=== PATIENT | female | born 1980 | race Caucasian/White ===

== ENCOUNTER 2018-06-05 20:03 | Emergency (ER) | payer OTHER ==
[2018-06-05 20:13] VITALS: BP 116/71; PULSE 95; RESP 19; TEMP 98.6
--- NOTE | 2018-06-05 20:22 | ED ---
Fall HPI - General Chief Complaint: Fall Stated Complaint: Fall Time Seen by Provider: 06/05/18 20:09 Source: patient, EMS Mode of arrival: EMS Limitations: no limitations - History of Present Illness Initial Comments: This is a 37-year-old female the ER for evaluation presents today for evaluation regarding fall. Patient a fall from extended height, greater than 10 feet. No drugs or alcohol involved. Patient is just complaining of hip and back pain. Did not land on her head, she did cut herself with her arms and then onto the right hip. She also has back pain. No loss of bowel or bladder no neurological complaint, patient is amateur MD Complaint: fall -: minutes(s) Fall From: from height (distance) When Fall Occurred: 1 hour UNSCRAMBLER Fall Witnessed: yes, by family Place Fall Occurred: home Loss of Consciousness: none Prolonged Down Time?: no Symptoms Prior to Fall: none Location: pelvis, buttocks Location - Extremities: Right: Thigh Severity: moderate Severity scale (1-10): 6 Quality: aching Context: tripped/slipped Associated Symptoms: denies - Related Data Home Medications Medication Instructions Recorded Confirmed Insulin Glulisine [Apidra] See Protocol INTRATHECA CONTINUOUS 10/27/14 06/05/18 ALPRAZolam 0.5 mg PO DAILY PRN 09/22/15 06/05/18 Cephalexin [Keflex] 500 mg PO TID 06/05/18 06/05/18 Previous Rx's Medication Instructions Recorded Naproxen [Naprosyn] 500 mg PO Q12HR PRN #30 tab 06/05/18 Allergies Allergy/AdvReac Type Severity Reaction Status Date / Time azithromycin [From Zithromax] Allergy Unknown Verified 06/05/18 21:24 morphine Allergy Unknown Verified 06/05/18 21:24 Sulfa (Sulfonamide Allergy Unknown Verified 06/05/18 21:24 Antibiotics) Review of Systems ROS Statement: Those systems with pertinent positive or pertinent negative responses have been documented in the HPI. ROS Other: All systems not noted in ROS Statement are negative. Past Medical History Past Medical History: Diabetes Mellitus Additional Past Medical History / Comment(s): neuropathy, retinopathy History of Any Multi-Drug Resistant Organisms: None Reported Past Surgical History: Section Past Psychological History: Anxiety, Depression Smoking Status: Current every day smoker Past Alcohol Use History: None Reported Past Drug Use History: None Reported General Exam Limitations: physical limitation General appearance: alert, in no apparent distress Head exam: Present: atraumatic, normocephalic, normal inspection Eye exam: Present: normal appearance, PERRL, EOMI. Absent: scleral icterus, conjunctival injection, periorbital swelling ENT exam: Present: normal exam, mucous membranes moist Neck exam: Present: normal inspection. Absent: tenderness, meningismus, lymphadenopathy Respiratory exam: Present: normal lung sounds bilaterally. Absent: respiratory distress, wheezes, rales, rhonchi, stridor Cardiovascular Exam: Present: regular rate, normal rhythm, normal heart sounds. Absent: systolic murmur, diastolic murmur, rubs, gallop, clicks GI/Abdominal exam: Present: soft, normal bowel sounds. Absent: distended, tenderness, guarding, rebound, rigid Extremities exam: Present: normal inspection, full ROM, normal capillary refill. Absent: tenderness, pedal edema, joint swelling, calf tenderness Back exam: Present: normal inspection Neurological exam: Present: alert, oriented X3, CN II-XII intact Psychiatric exam: Present: normal affect, normal mood Skin exam: Present: warm, dry, intact, normal color. Absent: rash Course Vital Signs 06/05/18 20:08 Temperature 98.6 F Pulse Rate 95 Respiratory 19 Rate Blood Pressure 116/71 O2 Sat by Pulse 97 Oximetry - Reevaluation(s) Reevaluation #1: Medical record is reviewed Patient is able to ambulate Medical Decision Making - Medical Decision Making 37 female the ER for evaluation status post fall. Patient is currently ambulatory. Pain is controlled, x-rays are negative. No bowel pain no again loss of consciousness. No drugs or alcohol. Patient can be discharged home - Radiology Data Radiology results: report reviewed (Chest x-ray pelvis x-ray lumbosacral spine as well as right hip are negative for traumatic injury), image reviewed Disposition Clinical Impression: Fall, Back contusion, Contusion of right hip Disposition: HOME SELF-CARE Condition: Good Instructions (If sedation given, give patient instructions): Contusion in Adults (ED), Back Pain (ED), Hip Pain (ED) Prescriptions: Naproxen [Naprosyn] 500 mg PO Q12HR PRN #30 tab PRN Reason: Pain Is patient prescribed a controlled substance at d/c from ED?: No Referrals: Adrianna Alfaro MD [Primary Care Provider] - 1-2 days
[2018-06-05] MEDS ORDERED: HYDROcodone/APAP 5-325MG 1 EACH TAB PO STA (20:40)
--- NOTE | 2018-06-05 21:59 | XR ---
EXAMINATION TYPE: XR Hip LT and AP Pelvis DATE OF EXAM: 06/05/2018 COMPARISON: NONE HISTORY: Pelvic and left hip pain after fall injury. TECHNIQUE: A single AP view of the pelvis is obtained. Two views of the left hip are obtained. FINDINGS: There is no acute fracture/dislocation evident in the pelvis. The hip and sacroiliac join ts appear symmetric and unremarkable. Tubal ligation clips overlie the pelvis. Two views of left hip show no acute fracture or dislocation. No focal lytic or sclerotic lesion seen in the proximal left femur. The overlying soft tissue is unremarkable. IMPRESSION: There is no acute fracture or dislocation in the pelvis or left hip.
--- NOTE | 2018-06-05 22:00 | XR ---
EXAMINATION TYPE: XR lumbosacral spine min 4V DATE OF EXAM: 06/05/2018 CLINICAL HISTORY: Back pain after fall injury. TECHNIQUE: Frontal, lateral, and oblique images of the lumbar spine are obtained. COMPARISON: None FINDINGS: There are 5 lumbar type vertebral bodies identified. The lumbar spine shows satisfactory alignment without evidence of acute fracture or dislocation. Vertebral body heights and disk space he ights are within normal limits. One oblique image is suboptimal in technique. The other is within nor mal limits. The overlying soft tissue appears unremarkable. IMPRESSION: No acute fracture or dislocation is seen in the lumbar spine.
--- NOTE | 2018-06-05 22:01 | XR ---
EXAMINATION TYPE: XR chest 1V DATE OF EXAM: 06/05/2018 COMPARISON: Chest x-ray June 28, 2015 HISTORY: Chest pain after fall injury. TECHNIQUE: Single frontal view of the chest is obtained. FINDINGS: There is no focal air space opacity, pleural effusion, or pneumothorax seen. The cardiac silhouette size is within normal limits. The osseous structures are intact. IMPRESSION: No acute cardiopulmonary process.
[2018-06-05] MEDS ORDERED: Acetaminophen-Codeine 300-30mg TAB PO STA (22:04)
[2018-06-05] MEDS ORDERED: IBUPROFEN 400 MG TAB PO STA (22:04)
[2018-06-05] MEDS ORDERED: ACET/COD 300 MG/30 MG STARTER PACK 6 TAB BTL PO STA (22:04)
== END 2018-06-05 23:31 | disposition home or self-care (01) ==
LOC: EC 20:03
DX: S70.02XA Contusion of left hip, initial encounter (principal); S20.229A Contusion of unspecified back wall of thorax, initial encounter; E11.40 Type 2 diabetes mellitus with diabetic neuropathy, unspecified; E11.319 Type 2 diabetes mellitus with unspecified diabetic retinopathy without macular edema; F41.9 Anxiety disorder, unspecified; F32.9 Major depressive disorder, single episode, unspecified; F17.200 Nicotine dependence, unspecified, uncomplicated; Z79.4 Long term (current) use of insulin; Z88.1 Allergy status to other antibiotic agents; Z88.2 Allergy status to sulfonamides; Z88.5 Allergy status to narcotic agent; W17.89XA Other fall from one level to another, initial encounter; Y92.009 Unspecified place in unspecified non-institutional (private) residence as the place of occurrence of the external cause
CPT/HCPCS: 71045; 72110; 73502; 99283

== ENCOUNTER → 2018-12-01 | Outpatient (CLI) | payer OTHER ==
[2018-12-01 16:14] LABS: African American GFR (CKD) 95.3 (60.0-200.0); Calcium 10.1 mg/dL (8.7-10.3); Potassium 5.9 mmol/L (3.5-5.5)
[2018-12-01 17:46] LABS: Hemoglobin A1C 7.8 % (4.0-6.0)
== END | disposition home or self-care (01) ==
LOC: LABWHC1 09:09
PROVIDERS: ATTEND Internal Medicine Endocrinology, Diabetes & Metabolism
DX: E11.9 Type 2 diabetes mellitus without complications (principal)
CPT/HCPCS: 36415; 80048; 83036

== ENCOUNTER → 2021-01-26 | Outpatient (CLI) | payer OTHER ==
[2021-01-26 22:17] LABS: African American GFR (CKD) 81.8 (60.0-200.0); Anion Gap 16.3 mmol/L (4.00-12.00); BUN/Creat Ratio 10.4 Ratio (12.00-20.00); Blood Urea Nitrogen 10.5 mg/dL (9.0-27.0); Calcium 9.2 mg/dL (8.7-10.3); Carbon Dioxide 21.9 mmol/L (21.6-31.8); Non-African American GFR(CKD) 70.6 (60.0-200.0); Potassium 3.9 mmol/L (3.5-5.5)
== END | disposition home or self-care (01) ==
LOC: LABWHC1 12:19
PROVIDERS: ATTEND Internal Medicine Endocrinology, Diabetes & Metabolism
DX: E11.9 Type 2 diabetes mellitus without complications (principal)
CPT/HCPCS: 36415; 80048; 83036

== ENCOUNTER → 2021-01-28 | Outpatient (CLI) | payer OTHER ==
--- NOTE | 2021-01-28 15:14 | US ---
EXAMINATION TYPE: US kidneys/renal and bladder DATE OF EXAM: 01/28/2021 COMPARISON: NONE CLINICAL HISTORY: 40-year-old female N12 Tubulo- interstitial nephritis. Flank pain. TECHNIQUE: Multiple sonographic images of the kidneys and bladder are obtained. FINDINGS: EXAM MEASUREMENTS: Right Kidney: 12.0 x 5.6 x 5.3 cm Left Kidney: 10.9 x 4.5 x 5.8 cm No hydronephrosis on either side. Bladder: distended, anechoic Bilateral Jets seen IMPRESSION: No hydronephrosis. No discrete sonographic abnormality of the kidneys.
== END | disposition home or self-care (01) ==
LOC: RADUSWWP 12:02
PROVIDERS: ATTEND Internal Medicine Endocrinology, Diabetes & Metabolism
DX: R10.9 Unspecified abdominal pain (principal)
CPT/HCPCS: 76770

== ENCOUNTER → 2022-02-19 | Outpatient (CLI) | payer OTHER ==
[2022-02-19 15:05] LABS: African American GFR (CKD) 93.4 (60.0-200.0); Anion Gap 10.9 mmol/L (10.00-18.00); BUN/Creat Ratio 10.11 Ratio (12.00-20.00); Blood Urea Nitrogen 9.1 mg/dL (9.0-27.0); Carbon Dioxide 27.1 mmol/L (20.0-27.5); Non-African American GFR(CKD) 80.5 (60.0-200.0); Potassium 5.4 mmol/L (3.5-5.5)
== END | disposition home or self-care (01) ==
LOC: LABWHC1 08:49
PROVIDERS: ATTEND Internal Medicine Endocrinology, Diabetes & Metabolism
DX: E11.9 Type 2 diabetes mellitus without complications (principal)
CPT/HCPCS: 36415; 80048; 82043; 82570; 83036

== ENCOUNTER 2022-11-15 20:17 | Inpatient (IN) | payer OTHER ==
[2022-11-15] MEDS ORDERED: SODIUM CHLORIDE 0.9% 1,000 ML IV STA ×2 (20:55→21:28)
--- NOTE | 2022-11-15 20:56 | ED ---
Recheck HPI - General Chief Complaint: Recheck/Abnormal Lab/Rx Stated Complaint: hyperglycemia Time Seen by Provider: 11/15/22 20:39 Source: patient, RN notes reviewed, old records reviewed Mode of arrival: ambulatory Limitations: altered mental status - History of Present Illness Initial Comments: This is a 42 history of diabetes. Patient coming in with severe nausea vomiting weakness not feeling well. Patient is having significant to severe distress. Poor strain secondary to clinical condition with severe shortness of breath nausea vomiting and weakness. Patient lost her insulin pump yesterday and without the sun all day does admit to some alcohol consumption yesterday and severely altered today and severely ill MD Complaint: abnormal lab (Elevated blood sugar) -: hour(s) Symptoms Since Prior Visit: worsening pain Associated Symptoms: none Treatments Prior to Arrival: other (0) - Related Data Home Medications Medication Instructions Recorded Confirmed Atorvastatin [Lipitor] 10 mg PO DAILY 11/15/22 11/15/22 DULoxetine HCL [Cymbalta] 60 mg PO DAILY 11/15/22 11/15/22 Glucagon [Baqsimi] 1 spray NASAL ONCE PRN 11/15/22 11/15/22 INSULIN LISPRO (For Pump) [humaLOG 0.01 units SQ-PUMP CONTINUOUS 11/15/22 11/15/22 (For Pump)] Previous Rx's Medication Instructions Recorded Calcium Carbonate [Tums] 500 mg PO QID PRN tab 11/18/22 Ondansetron Odt [Zofran Odt] 4 mg PO Q8HR PRN #30 tab 11/18/22 Allergies Allergy/AdvReac Type Severity Reaction Status Date / Time azithromycin [From Zithromax] Allergy Unknown Verified 06/05/18 21:24 morphine Allergy Unknown Verified 06/05/18 21:24 Sulfa (Sulfonamide Allergy Unknown Verified 06/05/18 21:24 Antibiotics) Review of Systems ROS Statement: Those systems with pertinent positive or pertinent negative responses have been documented in the HPI. ROS Other: All systems not noted in ROS Statement are negative. Past Medical History Past Medical History: Diabetes Mellitus Additional Past Medical History / Comment(s): neuropathy, retinopathy History of Any Multi-Drug Resistant Organisms: None Reported Past Surgical History: Section Past Psychological History: Anxiety, Depression Past Alcohol Use History: None Reported Past Drug Use History: None Reported General Exam Limitations: altered mental status, physical limitation General appearance: alert, in no apparent distress, anxious, lethargic, in distr ess Head exam: Present: atraumatic, normocephalic, normal inspection Eye exam: Present: normal appearance, PERRL, EOMI. Absent: scleral icterus, conjunctival injection, periorbital swelling ENT exam: Present: normal exam, mucous membranes dry Neck exam: Present: normal inspection. Absent: tenderness, meningismus, lymphadenopathy Respiratory exam: Present: normal lung sounds bilaterally. Absent: respiratory distress, wheezes, rales, rhonchi, stridor Cardiovascular Exam: Present: normal rhythm, tachycardia, normal heart sounds. Absent: systolic murmur, diastolic murmur, rubs, gallop, clicks GI/Abdominal exam: Present: soft, normal bowel sounds. Absent: distended, tenderness, guarding, rebound, rigid Extremities exam: Present: normal inspection, full ROM, normal capillary refill. Absent: tenderness, pedal edema, joint swelling, calf tenderness Back exam: Present: normal inspection Neurological exam: Present: alert, oriented X3, CN II-XII intact Psychiatric exam: Present: normal affect, normal mood Skin exam: Present: warm, dry, intact, normal color. Absent: rash Course Vital Signs 11/15/22 11/15/22 20:22 22:55 Temperature 97.9 F Pulse Rate 118 H 121 H Respiratory 18 42 H Rate Blood Pressure 113/55 O2 Sat by Pulse 100 Oximetry - Reevaluation(s) Reevaluation #1: 11/15/22 22:42 Medical records reviewed Reevaluation #2: 11/15/22 22:42 Patient found be in severe DKA, improving with hydration and Ativan shaking has significant Reevaluation #3: 11/15/22 22:43 Patient informed results and questions answered Reevaluation #4: 11/15/22 22:43 Was pt. sent in by a medical professional or institution (, PA, DINING SERVICES DIRECTOR, urgent care, hospital, or care home...) When possible be specific @ -no Did you speak to anyone other than the patient for history (EMS, parent, family, police, friend...)? What history was obtained from this source @ -no Did you review nursing and triage notes (agree or disagree)? Why? @ -agree Are old charts reviewed (outside hosp., previous admission, EMS record, old EKG, old radiological studies, urgent care reports/EKG's, care home records)? Report findings @ -yes Differential Diagnosis (chest pain, altered mental status, abdominal pain women, abdominal pain men, vaginal bleeding, weakness, fever, dyspnea, syncope, headache, dizziness, GI bleed, back pain, seizure, CVA, palpatations, mental health, musculoskeletal)? @ -prior EKG interpreted by me (3pts min.). @ -yes X-rays interpreted by me (1pt min.). @ -no CT interpreted by me (1pt min.). @ -no U/S interpreted by me (1pt. min.). @ -no What testing was considered but not performed or refused? (CT, X-rays, U/S, labs)? Why? @ -none What meds were considered but not given or refused? Why? @ -none Did you discuss the management of the patient with other professionals (professionals i.e. , PA, DINING SERVICES DIRECTOR, lab, RT, psych nurse, foster care social worker, shingle weaver, teacher, transport corps officer, therapeutic case manager)? Give summary @ -no Was smoking cessation discussed for >3mins.? @ -no Was critical care preformed (if so, how long)? @ -yes65 Were there social determinants of health that impacted care today? How? (Homelessness, low income, unemployed, alcoholism, drug addiction, transportation, low edu. Level, literacy, decrease access to med. care, alf, rehab)? @ -none Was there de-escalation of care discussed even if they declined (Discuss DNR or withdrawal of care, Hospice)? DNR status @ -no What co-morbidities impacted this encounter? (DM, HTN, Smoking, COPD, CAD, Cancer, CVA, ARF, Chemo, Hep., AIDS, mental health diagnosis, sleep apnea, morbid obesity)? @ -none Was patient admitted / discharged? Hospital course, mention meds given and route, prescriptions, significant lab abnormalities, going to OR and other pertinent info. @ - 42 female to the emergency department presenting in severe distress, nausea vomiting weakness shaking tremors. Severe shortness of breath difficulty breathing. Patient is found to be in significant DKA pH 7.0, patient will be admitted for DKA protocol to the ICU Admitted Undiagnosed new problem with uncertain prognosis? @ -no Drug Therapy requiring intensive monitoring for toxicity (Heparin, Nitro, Insulin, Cardizem)? @ -no Were any procedures done? @ -no Diagnosis/symptom? @ -Diabetic ketoacidosis Acute, or Chronic, or Acute on Chronic? @ -Acute Uncomplicated (without systemic symptoms) or Complicated (systemic symptoms)? @ -Complicated Side effects of treatment? @ -no Exacerbation, Progression, or Severe Exacerbation? @ -exacerbation Poses a threat to life or bodily function? How? (Chest pain, USA, NV, pneumonia, PE, COPD, DKA, ARF, appy, cholecystitis, CVA, Diverticulitis, Homicidal, Suicidal, threat to staff... and all critical care pts) @ -yes severe illness with DKA Reevaluation #5: 11/15/22 22:43 Differential Altered Mental Status: Hypoglycemia, DKA, hypercapnia, ETOH, overdose, CO poisoning, trauma, myxedema coma, HTN encephalopathy, infection, encephalitis, psychosis, intercranial hemorrhage, hepatic encephalopathy, meningitis, CVA, this is not meant to be an all-inclusive list - Consultations Consultation #1: Spoke with sound physicians who agree to admit this patient Consultation #2: Spoke with ICU who accepts admission to the ICU this patient Medical Decision Making - Medical Decision Making 42 female to the emergency department presenting in severe distress, nausea vomiting weakness shaking tremors. Severe shortness of breath difficulty breathing. Patient is found to be in significant DKA pH 7.0, patient will be admitted for DKA protocol to the ICU - Lab Data Result diagrams: 11/17/22 05:25 11/17/22 05:25 Lab Results 11/15/22 11/15/22 11/15/22 Range/Units 20:55 20:55 20:55 WBC 27.2 H (3.8-10.6) k/uL RBC 4.44 (3.80-5.40) m/uL Hgb 14.6 (11.4-16.0) gm/dL Hct 46.5 H (34.0-46.0) % MCV 104.7 H (80.0-100.0) fL MCH 32.8 (25.0-35.0) pg MCHC 31.4 (31.0-37.0) g/dL RDW 12.2 (11.5-15.5) % Plt Count 308 (150-450) k/uL MPV 9.5 Neutrophils % 90 % Lymphocytes % 5 % Monocytes % 4 % Eosinophils % 0 % Basophils % 0 % Neutrophils # 24.5 H (1.3-7.7) k/uL Lymphocytes # 1.4 (1.0-4.8) k/uL Monocytes # 1.1 H (0-1.0) k/uL Eosinophils # 0.1 (0-0.7) k/uL Basophils # 0.0 (0-0.2) k/uL Hypochromasia Marked Macrocytosis Slight VBG pH (7.31-7.41) VBG pCO2 (37-51) mmHg VBG HCO3 (24-28) mmol/L Sodium 140 (137-145) mmol/L Potassium 7.4 H* (3.5-5.1) mmol/L Chloride 100 (98-107) mmol/L Carbon Dioxide <5 L* (22-30) mmol/L Anion Gap mmol/L BUN 32 H (7-17) mg/dL Creatinine 1.49 H (0.52-1.04) mg/dL Est GFR (CKD-EPI)AfAm 51 (>60 ml/min/1.73 sqM) Est GFR (CKD-EPI)NonAf 44 (>60 ml/min/1.73 sqM) Glucose 676 H* (74-99) mg/dL POC Glucose (mg/dL) (70-110) mg/dL POC Glu Project Management Professor ID Calcium 10.4 H (8.4-10.2) mg/dL Phosphorus 9.9 H* (2.5-4.5) mg/dL Magnesium 2.7 H (1.6-2.3) mg/dL Total Bilirubin 0.8 (0.2-1.3) mg/dL AST 44 H (14-36) U/L ALT 44 H (4-34) U/L Alkaline Phosphatase 97 (38-126) U/L Troponin I (0.000-0.034) ng/mL Total Protein 8.5 H (6.3-8.2) g/dL Albumin 5.2 H (3.5-5.0) g/dL Urine Color Light Yellow Urine Appearance Clear (Clear) Urine pH 5.0 (5.0-8.0) Ur Specific [place] 1.018 (1.001-1.035) Urine Protein 1+ H (Negative) Urine Glucose (UA) 4+ H (Negative) Urine Ketones 4+ H (Negative) Urine Blood Small H (Negative) Urine Nitrite Negative (Negative) Urine Bilirubin Negative (Negative) Urine Urobilinogen <2.0 (<2.0) mg/dL Ur Leukocyte Esterase Negative (Negative) Ur Squamous Epith Cells 1 (0-4) /hpf Hyaline Casts 1 (0-2) /lpf Urine Mucus Rare H (None) /hpf Acetone, Qual Positive (Negative) 11/15/22 11/15/22 11/15/22 Range/Units 20:55 21:25 21:33 WBC (3.8-10.6) k/uL RBC (3.80-5.40) m/uL Hgb (11.4-16.0) gm/dL Hct (34.0-46.0) % MCV (80.0-100.0) fL MCH (25.0-35.0) pg MCHC (31.0-37.0) g/dL RDW (11.5-15.5) % Plt Count (150-450) k/uL MPV Neutrophils % % Lymphocytes % % Monocytes % % Eosinophils % % Basophils % % Neutrophils # (1.3-7.7) k/uL Lymphocytes # (1.0-4.8) k/uL Monocytes # (0-1.0) k/uL Eosinophils # (0-0.7) k/uL Basophils # (0-0.2) k/uL Hypochromasia Macrocytosis VBG pH 7.00 L* (7.31-7.41) VBG pCO2 18 L* (37-51) mmHg VBG HCO3 5 L* (24-28) mmol/L Sodium (137-145) mmol/L Potassium (3.5-5.1) mmol/L Chloride (98-107) mmol/L Carbon Dioxide (22-30) mmol/L Anion Gap mmol/L BUN (7-17) mg/dL Creatinine (0.52-1.04) mg/dL Est GFR (CKD-EPI)AfAm (>60 ml/min/1.73 sqM) Est GFR (CKD-EPI)NonAf (>60 ml/min/1.73 sqM) Glucose (74-99) mg/dL POC Glucose (mg/dL) >600 H (70-110) mg/dL POC Glu Project Management Professor ID Dada Forman Calcium (8.4-10.2) mg/dL Phosphorus (2.5-4.5) mg/dL Magnesium (1.6-2.3) mg/dL Total Bilirubin (0.2-1.3) mg/dL AST (14-36) U/L ALT (4-34) U/L Alkaline Phosphatase (38-126) U/L Troponin I <0.012 (0.000-0.034) ng/mL Total Protein (6.3-8.2) g/dL Albumin (3.5-5.0) g/dL Urine Color Urine Appearance (Clear) Urine pH (5.0-8.0) Ur Specific [place] (1.001-1.035) Urine Protein (Negative) Urine Glucose (UA) (Negative) Urine Ketones (Negative) Urine Blood (Negative) Urine Nitrite (Negative) Urine Bilirubin (Negative) Urine Urobilinogen (<2.0) mg/dL Ur Leukocyte Esterase (Negative) Ur Squamous Epith Cells (0-4) /hpf Hyaline Casts (0-2) /lpf Urine Mucus (None) /hpf Acetone, Qual (Negative) - EKG Data -: EKG Interpreted by Me (EKG is sinus tachycardia 124 CO 152 QRS 83 QTC 385) Critical Care Time Critical Care Time: Yes Total Critical Care Time: 65 Disposition Clinical Impression: Tachycardia, Hyperkalemia, DKA (diabetic ketoacidosis) Disposition: ADMITTED IP TO THIS [facility] Condition: Good Is patient prescribed a controlled substance at d/c from ED?: No Time of Disposition: 22:30
[2022-11-15 21:27] LABS: Glucose,Whole Blood >600 mg/dL (70-110)
[2022-11-15] MEDS ORDERED: SODIUM CHLORIDE 0.9% 500 ML 500 ML IV STA (21:28)
[2022-11-15] MEDS ORDERED: LORazepam 2 MG/ML INJ IV STA (21:28)
[2022-11-15 21:32] LABS: Basophils % (A) 0 %; Eosinophils # (A) 0.1 k/uL (0-0.7); Eosinophils % (A) 0 %; HCT 46.5 % (34.0-46.0); HGB 14.6 gm/dL (11.4-16.0); Hypochromasia Marked; Lymphocytes # (A) 1.4 k/uL (1.0-4.8); Lymphocytes % (A) 5 %; MCH 32.8 pg (25.0-35.0); MCHC 31.4 g/dL (31.0-37.0); MCV 104.7 fL (80.0-100.0); Macrocytosis Slight; Mean Platelet Volume 9.5; Monocytes # (A) 1.1 k/uL (0-1.0); Monocytes % (A) 4 %; Neutrophils # (A) 24.5 k/uL (1.3-7.7); Neutrophils % (A) 90 %; Platelet Count 308 k/uL (150-450); RBC 4.44 m/uL (3.80-5.40); RDW 12.2 % (11.5-15.5); WBC 27.2 k/uL (3.8-10.6)
[2022-11-15 21:41] LABS: AST 44 U/L (14-36); African American GFR (CKD) 51 (>60 ml/min/1.73 sqM); Albumin 5.2 g/dL (3.5-5.0); Alkaline Phosphatase 97 U/L (38-126); Blood Urea Nitrogen 32 mg/dL (7-17); Calcium 10.4 mg/dL (8.4-10.2); Chloride 100 mmol/L (98-107); Magnesium 2.7 mg/dL (1.6-2.3); Non-African American GFR(CKD) 44 (>60 ml/min/1.73 sqM); Sodium 140 mmol/L (137-145); Total Bilirubin 0.8 mg/dL (0.2-1.3); Total Protein 8.5 g/dL (6.3-8.2)
[2022-11-15 21:48] LABS: ALT 44 U/L (4-34)
[2022-11-15 21:55] LABS: Appearance,Urine Clear (Clear); Bilirubin,Urine Negative (Negative); Blood,Urine Small (Negative); Color,Urine Light Yellow; Glucose,Urine (UA) 4+ (Negative); Hyaline Casts,Urine 1 /lpf (0-2); Leukocyte Esterase,Urine Negative (Negative); Mucus,Urine Rare /hpf; Nitrite,Urine Negative (Negative); Protein,Urine 1+ (Negative); Specific Gravity,Urine 1.018 (1.001-1.035); Squamous Epithelial Cell,Urine 1 /hpf (0-4); Urobilinogen,Urine <2.0 mg/dL (<2.0)
[2022-11-15 21:56] LABS: Carbon Dioxide <5 mmol/L (22-30); Phosphorus 9.9 mg/dL (2.5-4.5); Potassium 7.4 mmol/L (3.5-5.1)
[2022-11-15 21:58] LABS: Glucose 676 mg/dL (74-99)
[2022-11-15 22:01] LABS: Ketones,Urine 4+ (Negative)
[2022-11-15] MEDS ORDERED: INSULIN REGULAR BOLUS (FROM DRIP BAG) IV ONE (22:29)
[2022-11-15 22:55] LABS: Glucose,Whole Blood >600 mg/dL (70-110)
[2022-11-15] MEDS ORDERED: INSULIN REGULAR 100 UNIT/ML VIAL (IV) IV ONE (23:10)
[2022-11-15] MEDS ORDERED: SODIUM BICARB 8.4% 50 ML SYR (1 MEQ/ML) IV STA (23:11)
[2022-11-15] MEDS ORDERED: ALBUTEROL NEBULIZED (CONC) 20 MG, SODIUM CHLORIDE 0.9% NEBULIZ 3 ML INHALATION ONE ×2 (23:12)
[2022-11-15] MEDS ORDERED: SODIUM ZIRCONIUM CYCLOSILICATE 10 GM PACKET PO ONE (23:14)
[2022-11-15] MEDS: INSULIN REGULAR 100 UNIT in SODIUM CHLORIDE 0.9% 100 ML IV SCH (23:21)
[2022-11-15] MEDS ORDERED: ALBUTEROL NEBULIZED 2.5 MG/3 ML INHALATION ONE (23:26)
[2022-11-16 00:16] LABS: Glucose,Whole Blood 572 mg/dL (70-110)
[2022-11-16] MEDS: SODIUM CHLORIDE 0.9% 1,000 ML IV SCH ×2 (00:51→04:10)
[2022-11-16 01:10] LABS: Glucose,Whole Blood 542 mg/dL (70-110)
--- NOTE | 2022-11-16 01:55 | P.CNPUL ---
History of Present Illness Consult date: 11/16/22 Requesting physician: Jeyson Terry Reason for consult: other (DKA; ICU management) Chief complaint: Nausea and vomiting, hyperglycemia History of present illness: I am seeing this patient in new consultation today 11/16/2022 in the intensive care unit for diabetic ketoacidosis. Patient is a 42-year-old female with past medical history significant for type 1 diabetes mellitus, hypertension, hyperlipidemia, and current every day smoker. Patient was floating down the river, and drinking alcohol on Tuesday. Her insulin pump broke or was lost. She has not had any insulin since Tuesday. She presented to the emergency room last night with complaints of nausea and vomiting and hyperglycemia. Blood glucose on arrival was 676, serum bicarb less than 5, anion gap unmeasurable, and she was ketone positive. VBG has a pH of 7, pCO2 of 18. Patient is fully awake and oriented, on room air, in no acute distress. Denies any infectious symptoms. She is refusing some aspects of care. Blood pressure is normotensive. Heart rhythm is sinus tachycardia. There are kussmaul respirations. Patient was started on the DKA protocol. Insulin is currently infusing per protocol. Normal saline is also infusing at 200 ML's per hour. She is also hyperkalemic with potassium of 7.4, and there are hyperacute T waves on bedside monitor. BMP has a sodium 140, potassium 7.4, chloride 100, serum bicarb less than 5, BUN 32, creatinine 1.49, glucose 676. There is a component of acute kidney injury, probably related to dehydration. CBC on arrival showed some leukocytosis with WBC count of 27, hem oglobin 14.6, hematocrit 46.5, platelets 308. Afebrile. Urinalysis not concerning for UTI. Patient will be monitored in the intensive care unit until her DKA resolved. Review of Systems REVIEW OF SYSTEMS: CONSTITUTIONAL: Denies any recent significant weight loss or weight gain. Denies fever. EYES: Denies change in vision. EARS, NOSE, MOUTH, THROAT: Denies headaches, denies sore throat. CARDIOVASCULAR: Denies chest pain, palpitations or syncopal episodes. RESPIRATORY: Denies shortness of breath, cough, congestion or hemoptysis. GASTROINTESTINAL: Denies change in appetite, abdominal pain, or diarrhea. Initially had some nausea and vomiting but this has subsided GENITOURINARY: Denies hematuria, denies infections. MUSKULOSKELETAL: Denies pain, denies swelling. INTEGUMENTARY: Denies rash, denies eczema. NEUROLOGICAL: Denies recent memory loss, no recent seizure activity. PSYCHIATRIC: Denies anxiety, denies depression. HEMATOLOGIC/LYMPHATIC: Denies anemia, denies enlarged lymph node Past Medical History Past Medical History: Diabetes Mellitus Additional Past Medical History / Comment(s): neuropathy, retinopathy History of Any Multi-Drug Resistant Organisms: None Reported Past Surgical History: Section Smoking Status: Current every day smoker Medications and Allergies Home Medications Medication Instructions Recorded Confirmed Type Atorvastatin [Lipitor] 10 mg PO DAILY 11/15/22 11/15/22 History DULoxetine HCL [Cymbalta] 60 mg PO DAILY 11/15/22 11/15/22 History Enalapril Maleate [Vasotec] 2.5 mg PO DAILY 11/15/22 11/15/22 History Glucagon [Baqsimi] 1 spray NASAL ONCE PRN 11/15/22 11/15/22 History INSULIN LISPRO (For Pump) [humaLOG 0.01 units SQ-PUMP CONTINUOUS 11/15/22 11/15/22 History (For Pump)] Allergies Allergy/AdvReac Type Severity Reaction Status Date / Time azithromycin [From Zithromax] Allergy Unknown Verified 06/05/18 21:24 morphine Allergy Unknown Verified 06/05/18 21:24 Sulfa (Sulfonamide Allergy Unknown Verified 06/05/18 21:24 Antibiotics) Physical Exam Vitals: Vital Signs Temp Pulse Resp BP Pulse Ox 11/16/22 01:00 128 H 25 H 103/59 100 11/16/22 00:30 116/65 100 11/16/22 00:00 134 H 31 H 109/54 99 11/15/22 23:44 128 H 11/15/22 23:36 122 H 11/15/22 23:34 98.3 F 11/15/22 23:30 125 H 27 H 119/58 98 11/15/22 23:00 123 H 34 H 122/68 99 11/15/22 22:55 121 H 42 H 11/15/22 20:22 97.9 F 118 H 18 113/55 100 Intake and Output 11/15/22 11/15/22 11/16/22 14:59 22:59 06:59 Intake Total 2217.271 Output Total 0 Balance 2217.271 Intake: Intake, IV Titration 2217.271 Amount Insulin Regular 100 unit 17.271 In Sodium Chloride 0.9% 100 ml @ 0.1 UNITS/KG/HR 5.956 mls/hr IV .[id number] [id number] Rx#:[id number] Sodium Chloride 0.9% 1, 200 000 ml @ 200 mls/hr IV . Q5H JAZMYN Rx#:[id number] Sodium Chloride 0.9% 1, 1000 000 ml @ 999 mls/hr IV . Q1H1M STA Rx#:[id number] Sodium Chloride 0.9% 1, 1000 000 ml @ 999 mls/hr IV . Q1H1M STA Rx#:[id number] Output: Urine 0 Other: Weight 58.967 kg 58.967 kg GENERAL EXAM: Alert, 42-year-old white female, fairly comfortable in no apparent distress. HEAD: Normocephalic and atraumatic EYES: Normal reaction of pupils, equal size. NOSE: Clear with pink turbinates. THROAT: No erythema or exudates. NECK: No masses, no JVD. CHEST: No chest wall deformity. LUNGS: Equal air entry with no crackles, wheeze, rhonchi or dullness. On room air. There are kussmaul respirations. CVS: S1 and S2 normal with no audible murmur, regular rhythm. No extra heart sounds. Heart rate is tachycardic around 120 bpm ABDOMEN: No hepatosplenomegaly, active bowel sounds, no guarding or rigidity. SPINE: No scoliosis or deformity SKIN: No rashes CENTRAL NERVOUS SYSTEM: No focal deficits, tone is normal in all 4 extremities. EXTREMITIES: There is no peripheral edema, clubbing, or cyanosis. Peripheral pulses are intact. Results - Laboratory Findings CBC and BMP: 11/16/22 06:03 11/16/22 06:03 Abnormal lab findings: Abnormal Labs 11/15/22 11/15/22 11/15/22 20:55 20:55 20:55 WBC 27.2 H Hct 46.5 H MCV 104.7 H Neutrophils # 24.5 H Monocytes # 1.1 H VBG pH VBG pCO2 VBG HCO3 Potassium 7.4 H* Carbon Dioxide <5 L* BUN 32 H Creatinine 1.49 H Glucose 676 H* POC Glucose (mg/dL) Calcium 10.4 H Phosphorus 9.9 H* Magnesium 2.7 H AST 44 H ALT 44 H Total Protein 8.5 H Albumin 5.2 H Urine Protein 1+ H Urine Glucose (UA) 4+ H Urine Ketones 4+ H Urine Blood Small H Urine Mucus Rare H 11/15/22 11/15/22 11/15/22 21:25 21:33 22:53 WBC Hct MCV Neutrophils # Monocytes # VBG pH 7.00 L* VBG pCO2 18 L* VBG HCO3 5 L* Potassium Carbon Dioxide BUN Creatinine Glucose POC Glucose (mg/dL) >600 H >600 H Calcium Phosphorus Magnesium AST ALT Total Protein Albumin Urine Protein Urine Glucose (UA) Urine Ketones Urine Blood Urine Mucus 11/16/22 11/16/22 00:10 01:08 WBC Hct MCV Neutrophils # Monocytes # VBG pH VBG pCO2 VBG HCO3 Potassium Carbon Dioxide BUN Creatinine Glucose POC Glucose (mg/dL) 572 H 542 H Calcium Phosphorus Magnesium AST ALT Total Protein Albumin Urine Protein Urine Glucose (UA) Urine Ketones Urine Blood Urine Mucus Assessment and Plan Assessment: Acute diabetic ketoacidosis, secondary to loss of insulin pump. Blood glucose on arrival was 676, serum bicarb less than 5, anion gap unmeasurable, and she was ketone positive. Currently on the DKA protocol Severe anion gap metabolic acidosis, secondary to above Severe hyperkalemia, with ECG changes on bedside monitor. Dehydration Leukocytosis, doubt infectious etiology Acute kidney injury, likely prerenal secondary to dehydration Hyperphosphatemia Essential hypertension Hyperlipidemia Chronic nicotine dependence Plan: Patient's medications and labs reviewed Continue DKA protocol Treat hyperkalemia with a combination of 1 amp sodium bicarbonate, albuterol inhalation, regular insulin 10 units IV once now, and [facility] Recheck potassium and continue to check electrolytes every 4 hours Normal saline is infusing at 200 ML's per hour per protocol Patient is refusing some aspects of care, patient's family is on their way in to reassure her We will continue to monitor the patient will in the intensive care unit I have personally seen and examined the patient, performed the documentation and the assessment and plan as written. Number of minutes spent on the visit:20 This is a joint evaluation that was done along with a nurse practitioner. A ventilation was done in more than 30 minutes. The patient is a type I diabetic and the patient has been on insulin pump on outpatient basis. She lost her DEXicom, and the patient she stopped her pump. The patient is currently presenting with DKA and she is currently on the protocol. She has an acute kidney injury which is improving. She has a reactive leukocytosis. She has and I get metabolic acidosis. Most recent serum bicarb is up to 9 from being as low was less than 5. Potassium levels at 4.3. She is on insulin drip which is currently running at 13.9 units an hour. Mental status is still altered. She was assessed. IV fluids and she was given a total of 3 L. She is currently on D5 half-normal saline running at 1 50 mL an hour. Will monitor electrolytes. We'll continue to follow. She'll be kept in the ICU. Blood sugar management and Accu-Cheks every 1 hour Time with Patient: Greater than 30
[2022-11-16 02:10] LABS: Glucose,Whole Blood 442 mg/dL (70-110)
[2022-11-16 02:17] LABS: African American GFR (CKD) 55 (>60 ml/min/1.73 sqM); Blood Urea Nitrogen 34 mg/dL (7-17); Chloride 107 mmol/L (98-107); Glucose 498 mg/dL (74-99); Non-African American GFR(CKD) 48 (>60 ml/min/1.73 sqM); Phosphorus 5.4 mg/dL (2.5-4.5); Potassium 4.4 mmol/L (3.5-5.1); Sodium 142 mmol/L (137-145)
[2022-11-16 02:22] LABS: Carbon Dioxide <5 mmol/L (22-30)
[2022-11-16 03:08] LABS: Glucose,Whole Blood 434 mg/dL (70-110)
[2022-11-16 04:09] LABS: Glucose,Whole Blood 405 mg/dL (70-110)
[2022-11-16 05:09] LABS: Glucose,Whole Blood 364 mg/dL (70-110)
[2022-11-16 06:10] LABS: Glucose,Whole Blood 358 mg/dL (70-110)
--- NOTE | 2022-11-16 06:11 | P.HPIM ---
History of Present Illness H&P Date: 11/15/22 Chief Complaint: Nausea vomiting 42-year-old female with insulin-dependent diabetes She is coming in for evaluation suspecting DKA due to her broken insulin pump. She was complaining of nausea vomiting and abdominal discomfort with elevated blood sugar. Normally she has an insulin pump however on Tuesday she was having a few drinks and accidentally slipped lid to scraping her leg and bumping current insulin pump and breaking it, she's been without insulin since Tuesday, she denies any fevers or chills denies any coughing or chest pain denies any changes in her urinary or bowel habits. Upon evaluation in the ED she was found to be in DKA with severe acidosis for wh ich she was admitted to the ICU for further care review of systems Pertinent positives as noted in HPI. All other systems were reviewed and are negative on exam Constitutional: No acute distress, conversant, pleasant Eyes: Anicteric sclerae, moist conjunctiva, Pupils equal round reactive to light ENMT: NC/AT Oropharynx clear, no erythema, or exudates Neck: Supple, no masses, or JVD No carotid bruits No thyromegaly Lungs: Clear to auscultation Clear to percussion Normal respiratory effort, no accessory muscle use Cardiovascular: Heart regular in rate and rhythm, No murmurs, gallops, or rubs No peripheral edema Abdominal: Soft Nontender, no guarding, rebound or rigidity Abdomen moving with respiration Normoactive bowel sounds No hepatomegaly, No splenomegaly No palpable mass No abdominal wall hernia noted Skin: Superficial abrasion involving the medial aspect of her left leg no active bleeding no purulence Extremities: No digital cyanosis No clubbing Pedal pulses intact and symmetrical Radial pulses intact and symmetrical No calf tenderness Psychiatric: Alert and oriented to person, place and time Appropriate affect Neuro Muscles Strength 5/5 in all 4 extremities Sensation to light touch grossly present throughout Cranial nerves II-XII grossly intact Lymphatics: no palpable cervical or supraclavicular lymph nodes Past Medical History Past Medical History: Diabetes Mellitus Additional Past Medical History / Comment(s): neuropathy, retinopathy History of Any Multi-Drug Resistant Organisms: None Reported Past Surgical History: Section Smoking Status: Current every day smoker Medications and Allergies Home Medications Medication Instructions Recorded Confirmed Type Atorvastatin [Lipitor] 10 mg PO DAILY 11/15/22 11/15/22 History DULoxetine HCL [Cymbalta] 60 mg PO DAILY 11/15/22 11/15/22 History Enalapril Maleate [Vasotec] 2.5 mg PO DAILY 11/15/22 11/15/22 History Glucagon [Baqsimi] 1 spray NASAL ONCE PRN 11/15/22 11/15/22 History INSULIN LISPRO (For Pump) [humaLOG 0.01 units SQ-PUMP CONTINUOUS 11/15/22 11/15/22 History (For Pump)] Allergies Allergy/AdvReac Type Severity Reaction Status Date / Time azithromycin [From Zithromax] Allergy Unknown Verified 06/05/18 21:24 morphine Allergy Unknown Verified 06/05/18 21:24 Sulfa (Sulfonamide Allergy Unknown Verified 06/05/18 21:24 Antibiotics) Physical Exam Vitals: Vital Signs Temp Pulse Resp BP Pulse Ox 11/16/22 04:00 98.4 F 118 H 20 106/57 100 11/16/22 03:30 120 H 20 101/59 99 11/16/22 03:00 120 H 22 103/58 100 11/16/22 02:30 123 H 23 108/57 98 11/16/22 02:00 128 H 27 H 109/54 100 11/16/22 01:30 125 H 21 99/60 99 11/16/22 01:00 128 H 25 H 103/59 100 11/16/22 00:30 116/65 100 11/16/22 00:00 134 H 31 H 109/54 99 11/15/22 23:44 128 H 11/15/22 23:36 122 H 11/15/22 23:34 98.3 F 11/15/22 23:30 125 H 27 H 119/58 98 11/15/22 23:00 123 H 34 H 122/68 99 11/15/22 22:55 121 H 42 H 11/15/22 20:22 97.9 F 118 H 18 113/55 100 Intake and Output 11/15/22 11/15/22 11/16/22 14:59 22:59 06:59 Intake Total 2854.376 Output Total 0 Balance 2854.376 Intake: Intake, IV Titration 2854.376 Amount Insulin Regular 100 unit 54.376 In Sodium Chloride 0.9% 100 ml @ 0.1 UNITS/KG/HR 5.956 mls/hr IV .[id number] JAZMYN Rx#:[id number] Sodium Chloride 0.9% 1, 800 000 ml @ 200 mls/hr IV . Q5H JAZMYN Rx#:[id number] Sodium Chloride 0.9% 1, 1000 000 ml @ 999 mls/hr IV . Q1H1M STA Rx#:[id number] Sodium Chloride 0.9% 1, 1000 000 ml @ 999 mls/hr IV . Q1H1M STA Rx#:[id number] Output: Urine 0 Other: Weight 58.967 kg 58 kg Results CBC & Chem 7: 11/15/22 20:55 11/16/22 01:55 Labs: Abnormal Lab Results - Last 24 Hours (Table) 11/15/22 11/15/22 11/15/22 Range/Units 20:55 20:55 20:55 WBC 27.2 H (3.8-10.6) k/uL Hct 46.5 H (34.0-46.0) % MCV 104.7 H (80.0-100.0) fL Neutrophils # 24.5 H (1.3-7.7) k/uL Monocytes # 1.1 H (0-1.0) k/uL VBG pH (7.31-7.41) VBG pCO2 (37-51) mmHg VBG HCO3 (24-28) mmol/L Potassium 7.4 H* (3.5-5.1) mmol/L Carbon Dioxide <5 L* (22-30) mmol/L BUN 32 H (7-17) mg/dL Creatinine 1.49 H (0.52-1.04) mg/dL Glucose 676 H* (74-99) mg/dL POC Glucose (mg/dL) (70-110) mg/dL Calcium 10.4 H (8.4-10.2) mg/dL Phosphorus 9.9 H* (2.5-4.5) mg/dL Magnesium 2.7 H (1.6-2.3) mg/dL AST 44 H (14-36) U/L ALT 44 H (4-34) U/L Total Protein 8.5 H (6.3-8.2) g/dL Albumin 5.2 H (3.5-5.0) g/dL Urine Protein 1+ H (Negative) Urine Glucose (UA) 4+ H (Negative) Urine Ketones 4+ H (Negative) Urine Blood Small H (Negative) Urine Mucus Rare H (None) /hpf 11/15/22 11/15/22 11/15/22 Range/Units 21:25 21:33 22:53 WBC (3.8-10.6) k/uL Hct (34.0-46.0) % MCV (80.0-100.0) fL Neutrophils # (1.3-7.7) k/uL Monocytes # (0-1.0) k/uL VBG pH 7.00 L* (7.31-7.41) VBG pCO2 18 L* (37-51) mmHg VBG HCO3 5 L* (24-28) mmol/L Potassium (3.5-5.1) mmol/L Carbon Dioxide (22-30) mmol/L BUN (7-17) mg/dL Creatinine (0.52-1.04) mg/dL Glucose (74-99) mg/dL POC Glucose (mg/dL) >600 H >600 H (70-110) mg/dL Calcium (8.4-10.2) mg/dL Phosphorus (2.5-4.5) mg/dL Magnesium (1.6-2.3) mg/dL AST (14-36) U/L ALT (4-34) U/L Total Protein (6.3-8.2) g/dL Albumin (3.5-5.0) g/dL Urine Protein (Negative) Urine Glucose (UA) (Negative) Urine Ketones (Negative) Urine Blood (Negative) Urine Mucus (None) /hpf 11/16/22 11/16/22 11/16/22 Range/Units 00:10 01:08 01:55 WBC (3.8-10.6) k/uL Hct (34.0-46.0) % MCV (80.0-100.0) fL Neutrophils # (1.3-7.7) k/uL Monocytes # (0-1.0) k/uL VBG pH (7.31-7.41) VBG pCO2 (37-51) mmHg VBG HCO3 (24-28) mmol/L Potassium (3.5-5.1) mmol/L Carbon Dioxide <5 L* (22-30) mmol/L BUN 34 H (7-17) mg/dL Creatinine 1.39 H (0.52-1.04) mg/dL Glucose 498 H (74-99) mg/dL POC Glucose (mg/dL) 572 H 542 H (70-110) mg/dL Calcium (8.4-10.2) mg/dL Phosphorus 5.4 H (2.5-4.5) mg/dL Magnesium (1.6-2.3) mg/dL AST (14-36) U/L ALT (4-34) U/L Total Protein (6.3-8.2) g/dL Albumin (3.5-5.0) g/dL Urine Protein (Negative) Urine Glucose (UA) (Negative) Urine Ketones (Negative) Urine Blood (Negative) Urine Mucus (None) /hpf 11/16/22 11/16/22 11/16/22 Range/Units 02:08 03:06 04:07 WBC (3.8-10.6) k/uL Hct (34.0-46.0) % MCV (80.0-100.0) fL Neutrophils # (1.3-7.7) k/uL Monocytes # (0-1.0) k/uL VBG pH (7.31-7.41) VBG pCO2 (37-51) mmHg VBG HCO3 (24-28) mmol/L Potassium (3.5-5.1) mmol/L Carbon Dioxide (22-30) mmol/L BUN (7-17) mg/dL Creatinine (0.52-1.04) mg/dL Glucose (74-99) mg/dL POC Glucose (mg/dL) 442 H 434 H 405 H (70-110) mg/dL Calcium (8.4-10.2) mg/dL Phosphorus (2.5-4.5) mg/dL Magnesium (1.6-2.3) mg/dL AST (14-36) U/L ALT (4-34) U/L Total Protein (6.3-8.2) g/dL Albumin (3.5-5.0) g/dL Urine Protein (Negative) Urine Glucose (UA) (Negative) Urine Ketones (Negative) Urine Blood (Negative) Urine Mucus (None) /hpf 11/16/22 Range/Units 05:07 WBC (3.8-10.6) k/uL Hct (34.0-46.0) % MCV (80.0-100.0) fL Neutrophils # (1.3-7.7) k/uL Monocytes # (0-1.0) k/uL VBG pH (7.31-7.41) VBG pCO2 (37-51) mmHg VBG HCO3 (24-28) mmol/L Potassium (3.5-5.1) mmol/L Carbon Dioxide (22-30) mmol/L BUN (7-17) mg/dL Creatinine (0.52-1.04) mg/dL Glucose (74-99) mg/dL POC Glucose (mg/dL) 364 H (70-110) mg/dL Calcium (8.4-10.2) mg/dL Phosphorus (2.5-4.5) mg/dL Magnesium (1.6-2.3) mg/dL AST (14-36) U/L ALT (4-34) U/L Total Protein (6.3-8.2) g/dL Albumin (3.5-5.0) g/dL Urine Protein (Negative) Urine Glucose (UA) (Negative) Urine Ketones (Negative) Urine Blood (Negative) Urine Mucus (None) /hpf Assessment and Plan Assessment: 42-year-old female with insulin-dependent diabetes coming in with nausea vomiting abdominal pain and elevated blood sugar I discussed the case with the ED doctor and accepted the admission for DKA with anticipated length of stay more than 2 midnights Diabetic ketoacidosis secondary to noncompliance with insulin Patient had broken insulin pump Nothing by mouth Initiated on DKA pathway with insulin drip close monitoring of blood sugar and IV fluid hydration with normal saline Transition to D5 0.45 once blood sugar less than 250 Monitor potassium closely Admission to the ICU ICU consult Leukocytosis with white count of 27 was likely reactive secondary to hyperglycemia Hemoglobin 14.6 unremarkable UA negative no evidence of UTI Hyperkalemia secondary to severe acidosis Initial potassium 7.4 Resolved Acute kidney injury secondary to dehydration secondary to above Avoid nephrotoxic meds Hold enalapril IV fluid hydration normal saline Creatinine 1.49, BUN 32 Full code DVT prophylaxis heparin subcu 3 times a day
[2022-11-16 06:29] LABS: Basophils # (A) 0.1 k/uL (0-0.2); Basophils % (A) 0 %; Eosinophils # (A) 0.3 k/uL (0-0.7); Eosinophils % (A) 1 %; HCT 39.2 % (34.0-46.0); HGB 13.1 gm/dL (11.4-16.0); Lymphocytes # (A) 1.7 k/uL (1.0-4.8); Lymphocytes % (A) 5 %; MCH 32.7 pg (25.0-35.0); MCHC 33.3 g/dL (31.0-37.0); Mean Platelet Volume 8.7; Monocytes # (A) 1.5 k/uL (0-1.0); Monocytes % (A) 4 %; Neutrophils # (A) 30.6 k/uL (1.3-7.7); Neutrophils % (A) 89 %; Platelet Count 230 k/uL (150-450); RBC 3.99 m/uL (3.80-5.40); RDW 12.6 % (11.5-15.5); WBC 34.3 k/uL (3.8-10.6)
[2022-11-16 06:33] LABS: ALT 25 U/L (4-34); AST 32 U/L (14-36); African American GFR (CKD) 65 (>60 ml/min/1.73 sqM); Albumin 3.8 g/dL (3.5-5.0); Alkaline Phosphatase 63 U/L (38-126); Anion Gap 19 mmol/L; Blood Urea Nitrogen 32 mg/dL (7-17); Calcium 7.9 mg/dL (8.4-10.2); Chloride 111 mmol/L (98-107); Glucose 357 mg/dL (74-99); Non-African American GFR(CKD) 56 (>60 ml/min/1.73 sqM); Phosphorus 2.2 mg/dL (2.5-4.5); Potassium 4.3 mmol/L (3.5-5.1); Sodium 139 mmol/L (137-145); Total Bilirubin 0.6 mg/dL (0.2-1.3); Total Protein 6.3 g/dL (6.3-8.2)
[2022-11-16 06:35] LABS: MCV 98.2 fL (80.0-100.0)
[2022-11-16 06:37] LABS: Carbon Dioxide 9 mmol/L (22-30)
[2022-11-16 06:53] LABS: Glucose,Whole Blood 321 mg/dL (70-110)
[2022-11-16 08:08] LABS: Glucose,Whole Blood 277 mg/dL (70-110)
[2022-11-16] MEDS: D5-0.45% NACL WITH KCL 20MEQ/L 1,000 ML IV SCH ×3 (08:23→22:04)
[2022-11-16] MEDS ORDERED: Phosphorus Replacement Protoco 1 EACH MISC MISCELLANE PRN (08:28)
[2022-11-16] MEDS: HEPARIN SODIUM,PORCINE 5,000 UNIT/ML 1 ML VIAL SQ SCH ×2 (08:30→20:05)
[2022-11-16] MEDS: ATORVASTATIN 10 MG TAB PO SCH (08:30)
[2022-11-16 08:58] LABS: Glucose,Whole Blood 293 mg/dL (70-110)
[2022-11-16] MEDS ORDERED: ENALAPRIL MALEATE 2.5 MG PO SCH (09:00)
[2022-11-16] MEDS ORDERED: SODIUM PHOSPHATE 15 MMOL in DEXTROSE 5% IN WATER 250 ML IVPB ONE ×2 (09:00)
[2022-11-16] MEDS: INSULIN REGULAR 100 UNIT in SODIUM CHLORIDE 0.9% 100 ML IV SCH ×2 (09:59→20:32)
[2022-11-16 10:01] LABS: Glucose,Whole Blood 286 mg/dL (70-110)
--- NOTE | 2022-11-16 10:46 | P.PN ---
Subjective Progress Note Date: 11/16/22 Patient has no new complaints today. Nausea, vomiting have improved. Denies pain. Gen: awake, alert HEENT: normocephalic, atraumatic, good hearing acuity, moist mucous membranes Resp: good air exchange, breathing comfortably with no accessory muscle use CVS: good distal perfusion x 4, GI: soft, NTTP, ND : no SPT, no CVAT, machado catheter not present MSK: no pitting edema, no clubbing Neuro: non-focal, moving all extremities Psych: cooperative, euthymic mood Hospital course: 42-year-old female with insulin-dependent diabetes, hypertension, hyperlipidemia presented for evaluation of nausea, vomiting. In the emergency room, patient was afebrile, 113/55, heart rate 118, 100% on room air. CBC demonstrated leukocytosis at 34.3. Basic metabolic panel showed an anion gap of 19, CO2 of 9, BUNs 32, creatinine 1.21, glucose of 358. Potassium was initially 7.4, but improved to 4.3. Phosphorus was 2.2. Liver function tests are unremarkable. EKG demonstrated sinus tachycardia with peaked T waves. Case is discussed with emergency room provider incision was made with the patient's intensive care unit for DKA. Assessment: Diabetic ketoacidosis Hypertension Hyperlipidemia Plan: Today, patient is afebrile, 115/63, heart rate 105, 95% on room air. See the hospital course above from my review of lab work as well as independent interpretation of EKG. Continue checking electrolytes every 4 hours Order potassium phosphate for replacement of phosphorus Continue insulin drip, monitor glucose every hour for toxicity Resume patient's home atorvastatin Continue IV fluids: D5 half-normal with 20 mEq of KCl running at 150 mL per hour Patient is full code Objective - Vital Signs Vital signs: Vital Signs Temp 99.0 F 11/16/22 08:00 Pulse 107 H 11/16/22 08:30 Resp 19 11/16/22 08:30 BP 95/51 11/16/22 08:30 Pulse Ox 100 11/16/22 08:30 FiO2 Intake & Output 11/15/22 11/16/22 11/16/22 18:59 06:59 18:59 Intake Total 3275.901 530.999 Output Total 0 0 Balance 3275.901 530.999 Weight 58 kg Intake: Intake, IV Titration 3275.901 380.999 Amount D5-0.45% NaCl with KCl 150 20Meq/l 1,000 ml @ 150 mls/hr IV .Q6H40M [facility] Rx# :[id number] Insulin Regular 100 unit 75.901 30.999 In Sodium Chloride 0.9% 100 ml @ 0.1 UNITS/KG/HR 5.956 mls/hr IV .[id number] [facility] Rx#:[id number] Sodium Chloride 0.9% 1, 1200 200 000 ml @ 200 mls/hr IV . Q5H [facility] Rx#:[id number] Sodium Chloride 0.9% 1, 1000 000 ml @ 999 mls/hr IV . Q1H1M [facility] Rx#:[id number] Sodium Chloride 0.9% 1, 1000 000 ml @ 999 mls/hr IV . Q1H1M [facility] Rx#:[id number] Oral 0 Tube Feeding 150 Output: Urine 0 0 - Labs CBC & Chem 7: 11/16/22 06:03 11/16/22 06:03 Labs: Abnormal Lab Results - Last 24 Hours (Table) 11/15/22 11/15/22 11/15/22 Range/Units 20:55 20:55 20:55 WBC 27.2 H (3.8-10.6) k/uL Hct 46.5 H (34.0-46.0) % MCV 104.7 H (80.0-100.0) fL Neutrophils # 24.5 H (1.3-7.7) k/uL Monocytes # 1.1 H (0-1.0) k/uL VBG pH (7.31-7.41) VBG pCO2 (37-51) mmHg VBG HCO3 (24-28) mmol/L Potassium 7.4 H* (3.5-5.1) mmol/L Chloride (98-107) mmol/L Carbon Dioxide <5 L* (22-30) mmol/L BUN 32 H (7-17) mg/dL Creatinine 1.49 H (0.52-1.04) mg/dL Glucose 676 H* (74-99) mg/dL POC Glucose (mg/dL) (70-110) mg/dL Calcium 10.4 H (8.4-10.2) mg/dL Phosphorus 9.9 H* (2.5-4.5) mg/dL Magnesium 2.7 H (1.6-2.3) mg/dL AST 44 H (14-36) U/L ALT 44 H (4-34) U/L Total Protein 8.5 H (6.3-8.2) g/dL Albumin 5.2 H (3.5-5.0) g/dL Urine Protein 1+ H (Negative) Urine Glucose (UA) 4+ H (Negative) Urine Ketones 4+ H (Negative) Urine Blood Small H (Negative) Urine Mucus Rare H (None) /hpf 11/15/22 11/15/22 11/15/22 Range/Units 21:25 21:33 22:53 WBC (3.8-10.6) k/uL Hct (34.0-46.0) % MCV (80.0-100.0) fL Neutrophils # (1.3-7.7) k/uL Monocytes # (0-1.0) k/uL VBG pH 7.00 L* (7.31-7.41) VBG pCO2 18 L* (37-51) mmHg VBG HCO3 5 L* (24-28) mmol/L Potassium (3.5-5.1) mmol/L Chloride (98-107) mmol/L Carbon Dioxide (22-30) mmol/L BUN (7-17) mg/dL Creatinine (0.52-1.04) mg/dL Glucose (74-99) mg/dL POC Glucose (mg/dL) >600 H >600 H (70-110) mg/dL Calcium (8.4-10.2) mg/dL Phosphorus (2.5-4.5) mg/dL Magnesium (1.6-2.3) mg/dL AST (14-36) U/L ALT (4-34) U/L Total Protein (6.3-8.2) g/dL Albumin (3.5-5.0) g/dL Urine Protein (Negative) Urine Glucose (UA) (Negative) Urine Ketones (Negative) Urine Blood (Negative) Urine Mucus (None) /hpf 11/16/22 11/16/22 11/16/22 Range/Units 00:10 01:08 01:55 WBC (3.8-10.6) k/uL Hct (34.0-46.0) % MCV (80.0-100.0) fL Neutrophils # (1.3-7.7) k/uL Monocytes # (0-1.0) k/uL VBG pH (7.31-7.41) VBG pCO2 (37-51) mmHg VBG HCO3 (24-28) mmol/L Potassium (3.5-5.1) mmol/L Chloride (98-107) mmol/L Carbon Dioxide <5 L* (22-30) mmol/L BUN 34 H (7-17) mg/dL Creatinine 1.39 H (0.52-1.04) mg/dL Glucose 498 H (74-99) mg/dL POC Glucose (mg/dL) 572 H 542 H (70-110) mg/dL Calcium (8.4-10.2) mg/dL Phosphorus 5.4 H (2.5-4.5) mg/dL Magnesium (1.6-2.3) mg/dL AST (14-36) U/L ALT (4-34) U/L Total Protein (6.3-8.2) g/dL Albumin (3.5-5.0) g/dL Urine Protein (Negative) Urine Glucose (UA) (Negative) Urine Ketones (Negative) Urine Blood (Negative) Urine Mucus (None) /hpf 11/16/22 11/16/22 11/16/22 Range/Units 02:08 03:06 04:07 WBC (3.8-10.6) k/uL Hct (34.0-46.0) % MCV (80.0-100.0) fL Neutrophils # (1.3-7.7) k/uL Monocytes # (0-1.0) k/uL VBG pH (7.31-7.41) VBG pCO2 (37-51) mmHg VBG HCO3 (24-28) mmol/L Potassium (3.5-5.1) mmol/L Chloride (98-107) mmol/L Carbon Dioxide (22-30) mmol/L BUN (7-17) mg/dL Creatinine (0.52-1.04) mg/dL Glucose (74-99) mg/dL POC Glucose (mg/dL) 442 H 434 H 405 H (70-110) mg/dL Calcium (8.4-10.2) mg/dL Phosphorus (2.5-4.5) mg/dL Magnesium (1.6-2.3) mg/dL AST (14-36) U/L ALT (4-34) U/L Total Protein (6.3-8.2) g/dL Albumin (3.5-5.0) g/dL Urine Protein (Negative) Urine Glucose (UA) (Negative) Urine Ketones (Negative) Urine Blood (Negative) Urine Mucus (None) /hpf 11/16/22 11/16/22 11/16/22 Range/Units 05:07 06:03 06:03 WBC 34.3 H (3.8-10.6) k/uL Hct (34.0-46.0) % MCV (80.0-100.0) fL Neutrophils # 30.6 H (1.3-7.7) k/uL Monocytes # 1.5 H (0-1.0) k/uL VBG pH (7.31-7.41) VBG pCO2 (37-51) mmHg VBG HCO3 (24-28) mmol/L Potassium (3.5-5.1) mmol/L Chloride 111 H (98-107) mmol/L Carbon Dioxide 9 L* (22-30) mmol/L BUN 32 H (7-17) mg/dL Creatinine 1.21 H (0.52-1.04) mg/dL Glucose 357 H (74-99) mg/dL POC Glucose (mg/dL) 364 H (70-110) mg/dL Calcium 7.9 L (8.4-10.2) mg/dL Phosphorus 2.2 L (2.5-4.5) mg/dL Magnesium (1.6-2.3) mg/dL AST (14-36) U/L ALT (4-34) U/L Total Protein (6.3-8.2) g/dL Albumin (3.5-5.0) g/dL Urine Protein (Negative) Urine Glucose (UA) (Negative) Urine Ketones (Negative) Urine Blood (Negative) Urine Mucus (None) /hpf 11/16/22 11/16/22 11/16/22 Range/Units 06:08 06:51 08:06 WBC (3.8-10.6) k/uL Hct (34.0-46.0) % MCV (80.0-100.0) fL Neutrophils # (1.3-7.7) k/uL Monocytes # (0-1.0) k/uL VBG pH (7.31-7.41) VBG pCO2 (37-51) mmHg VBG HCO3 (24-28) mmol/L Potassium (3.5-5.1) mmol/L Chloride (98-107) mmol/L Carbon Dioxide (22-30) mmol/L BUN (7-17) mg/dL Creatinine (0.52-1.04) mg/dL Glucose (74-99) mg/dL POC Glucose (mg/dL) 358 H 321 H 277 H (70-110) mg/dL Calcium (8.4-10.2) mg/dL Phosphorus (2.5-4.5) mg/dL Magnesium (1.6-2.3) mg/dL AST (14-36) U/L ALT (4-34) U/L Total Protein (6.3-8.2) g/dL Albumin (3.5-5.0) g/dL Urine Protein (Negative) Urine Glucose (UA) (Negative) Urine Ketones (Negative) Urine Blood (Negative) Urine Mucus (None) /hpf 11/16/22 11/16/22 Range/Units 08:57 09:59 WBC (3.8-10.6) k/uL Hct (34.0-46.0) % MCV (80.0-100.0) fL Neutrophils # (1.3-7.7) k/uL Monocytes # (0-1.0) k/uL VBG pH (7.31-7.41) VBG pCO2 (37-51) mmHg VBG HCO3 (24-28) mmol/L Potassium (3.5-5.1) mmol/L Chloride (98-107) mmol/L Carbon Dioxide (22-30) mmol/L BUN (7-17) mg/dL Creatinine (0.52-1.04) mg/dL Glucose (74-99) mg/dL POC Glucose (mg/dL) 293 H 286 H (70-110) mg/dL Calcium (8.4-10.2) mg/dL Phosphorus (2.5-4.5) mg/dL Magnesium (1.6-2.3) mg/dL AST (14-36) U/L ALT (4-34) U/L Total Protein (6.3-8.2) g/dL Albumin (3.5-5.0) g/dL Urine Protein (Negative) Urine Glucose (UA) (Negative) Urine Ketones (Negative) Urine Blood (Negative) Urine Mucus (None) /hpf
[2022-11-16 11:03] LABS: Glucose,Whole Blood 290 mg/dL (70-110)
[2022-11-16 11:57] VITALS: BMI 21.9
[2022-11-16 12:00] LABS: Glucose,Whole Blood 270 mg/dL (70-110)
[2022-11-16 12:43] LABS: Potassium 3.9 mmol/L (3.5-5.1)
[2022-11-16 13:01] LABS: Glucose,Whole Blood 249 mg/dL (70-110)
[2022-11-16 13:58] LABS: Glucose,Whole Blood 227 mg/dL (70-110)
[2022-11-16 15:01] LABS: Glucose,Whole Blood 155 mg/dL (70-110)
[2022-11-16] MEDS ORDERED: METOCLOPRAMIDE 5 MG/ML 2 ML VIAL IVP PRN (15:13)
[2022-11-16] MEDS: ONDANSETRON 4 MG/2 ML VIAL IVP PRN (15:28)
[2022-11-16 16:13] LABS: Glucose,Whole Blood 101 mg/dL (70-110)
[2022-11-16 16:42] LABS: Potassium 3.3 mmol/L (3.5-5.1)
[2022-11-16] MEDS ORDERED: Potassium Replacement Protocol 1 EACH MISC MISCELLANE PRN (16:55)
[2022-11-16 17:01] LABS: Glucose,Whole Blood 65 mg/dL (70-110)
[2022-11-16 17:34] LABS: Glucose,Whole Blood 63 mg/dL (70-110)
[2022-11-16] MEDS: POTASSIUM CHLORIDE ER 20 MEQ TAB.ER PO SCH ×2 (17:50→18:45)
[2022-11-16 17:57] LABS: Glucose,Whole Blood 67 mg/dL (70-110)
[2022-11-16 18:56] LABS: Glucose,Whole Blood 93 mg/dL (70-110)
[2022-11-16 20:29] LABS: Glucose,Whole Blood 190 mg/dL (70-110)
[2022-11-16 21:07] LABS: Glucose,Whole Blood 185 mg/dL (70-110)
[2022-11-16 22:10] LABS: Glucose,Whole Blood 207 mg/dL (70-110)
[2022-11-16 23:05] LABS: Glucose,Whole Blood 152 mg/dL (70-110)
[2022-11-17 00:16] LABS: Glucose,Whole Blood 131 mg/dL (70-110)
[2022-11-17] MEDS: HEPARIN SODIUM,PORCINE 5,000 UNIT/ML 1 ML VIAL SQ SCH ×3 (00:29→16:49)
[2022-11-17 01:03] LABS: Glucose,Whole Blood 130 mg/dL (70-110)
[2022-11-17 02:07] LABS: Glucose,Whole Blood 171 mg/dL (70-110)
[2022-11-17] MEDS: ONDANSETRON 4 MG/2 ML VIAL IVP PRN ×2 (02:12→15:35)
[2022-11-17 02:57] LABS: Glucose,Whole Blood 186 mg/dL (70-110)
[2022-11-17 04:07] LABS: Glucose,Whole Blood 208 mg/dL (70-110)
[2022-11-17 05:05] LABS: Glucose,Whole Blood 210 mg/dL (70-110)
[2022-11-17 05:56] LABS: HCT 34.8 % (34.0-46.0); HGB 11.7 gm/dL (11.4-16.0); RBC 3.61 m/uL (3.80-5.40); WBC 26.8 k/uL (3.8-10.6)
[2022-11-17 05:57] LABS: Basophils % (A) 0 %; Eosinophils # (A) 0.1 k/uL (0-0.7); Eosinophils % (A) 0 %; Lymphocytes # (A) 2.5 k/uL (1.0-4.8); Lymphocytes % (A) 9 %; MCH 32.3 pg (25.0-35.0); MCHC 33.5 g/dL (31.0-37.0); MCV 96.5 fL (80.0-100.0); Mean Platelet Volume 8.1; Monocytes # (A) 1.1 k/uL (0-1.0); Monocytes % (A) 4 %; Neutrophils # (A) 22.9 k/uL (1.3-7.7); Neutrophils % (A) 86 %; Platelet Count 188 k/uL (150-450); RDW 12.6 % (11.5-15.5)
[2022-11-17 05:59] LABS: African American GFR (CKD) >90 (>60 ml/min/1.73 sqM); Anion Gap 10 mmol/L; Blood Urea Nitrogen 12 mg/dL (7-17); Calcium 7.9 mg/dL (8.4-10.2); Carbon Dioxide 16 mmol/L (22-30); Chloride 109 mmol/L (98-107); Glucose 208 mg/dL (74-99); Non-African American GFR(CKD) >90 (>60 ml/min/1.73 sqM); Potassium 4.6 mmol/L (3.5-5.1); Sodium 135 mmol/L (137-145)
[2022-11-17 06:14] LABS: Glucose,Whole Blood 211 mg/dL (70-110)
[2022-11-17 07:06] LABS: Glucose,Whole Blood 225 mg/dL (70-110)
[2022-11-17] MEDS: D5-0.45% NACL WITH KCL 20MEQ/L 1,000 ML IV SCH ×3 (07:08→19:12)
[2022-11-17 08:01] LABS: Glucose,Whole Blood 246 mg/dL (70-110)
[2022-11-17] MEDS: ATORVASTATIN 10 MG TAB PO SCH (08:57)
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
[2022-11-17] MEDS ORDERED: SODIUM BICARB 8.4% 50 ML SYR (1 MEQ/ML) IV STA (09:02)
[2022-11-17 09:09] LABS: Glucose,Whole Blood 252 mg/dL (70-110)
[2022-11-17] MEDS ORDERED: INSULIN DETEMIR (LEVEMIR) 100 UNIT/ML SYR SQ STA (10:00)
[2022-11-17 10:14] LABS: Glucose,Whole Blood 263 mg/dL (70-110)
--- NOTE | 2022-11-17 10:49 | P.PN ---
Subjective Progress Note Date: 11/17/22 Patient has no new complaints today. Nausea, vomiting have improved. Denies pain. Tolerating diet Gen: awake, alert HEENT: normocephalic, atraumatic, good hearing acuity, moist mucous membranes Resp: good air exchange, breathing comfortably with no accessory muscle use CVS: good distal perfusion x 4, GI: soft, NTTP, ND : no SPT, no CVAT, machado catheter not present MSK: no pitting edema, no clubbing Neuro: non-focal, moving all extremities Psych: cooperative, euthymic mood Hospital course: 42-year-old female with insulin-dependent diabetes, hypertension, hyperlipidemia presented for evaluation of nausea, vomiting. In the emergency room, patient was afebrile, 113/55, heart rate 118, 100% on room air. CBC demonstrated leukocytosis at 34.3. Basic metabolic panel showed an anion gap of 19, CO2 of 9, BUNs 32, creatinine 1.21, glucose of 358. Potassium was initially 7.4, but improved to 4.3. Phosphorus was 2.2. Liver function tests are unremarkable. EKG demonstrated sinus tachycardia with peaked T waves. Case is discussed with emergency room provider incision was made with the patient's intensive care unit for DKA. Assessment: Diabetic ketoacidosis Hypertension Hyperlipidemia Plan: Today, patient is afebrile, 113/78, heart rate 92, 97% on room air. CBC today shows improvement of leukocytosis to 26.8. Na is 135, Cl 109, CO2 16, AGAP 10. Pt transitioned to levemir 24U Daily, SSI aspart Resume patient's home atorvastatin Continue IV fluids: D5 half-normal with 20 mEq of KCl running at 150 mL per hour Diet advanced to carbohydrate consistent regular Patient is full code Objective - Vital Signs Vital signs: Vital Signs Temp 98.9 F 11/17/22 08:00 Pulse 92 11/17/22 10:00 Resp 22 11/17/22 10:00 BP 113/78 11/17/22 10:00 Pulse Ox 97 11/17/22 10:00 FiO2 Intake & Output 11/16/22 11/17/22 11/17/22 18:59 06:59 18:59 Intake Total 3481.999 2571.566 730.15 Output Total 1650 925 0 Balance 7069.555 4337.566 730.15 Weight 58 kg 62 kg Intake: IV 1750 1800 600 D5-0.45% NaCl with KCl 1500 1800 600 20Meq/l 1,000 ml @ 150 mls/hr IV .Q6H40M [facility] Rx# :[id number] Sodium Phosphate 15 mmol 250 In Dextrose 5% in Water 250 ml @ 127.5 mls/hr IVPB ONCE ONE Rx#: [id number] Intake, IV Titration 481.999 16.566 10.15 Amount D5-0.45% NaCl with KCl 150 20Meq/l 1,000 ml @ 150 mls/hr IV .Q6H40M [facility] Rx# :[id number] Insulin Regular 100 unit 131.999 16.566 10.15 In Sodium Chloride 0.9% 100 ml @ 0.1 UNITS/KG/HR 5.956 mls/hr IV .[id number] [facility] Rx#:[id number] Sodium Chloride 0.9% 1, 200 000 ml @ 200 mls/hr IV . Q5H [facility] Rx#:[id number] Oral 1100 755 120 Tube Feeding 150 Output: Urine 1650 925 0 Other: Voiding Method Bedside Commode Bedside Commode # Voids 1 1 - Labs CBC & Chem 7: 11/17/22 05:25 11/17/22 05:25 Labs: Abnormal Lab Results - Last 24 Hours (Table) 11/16/22 11/16/22 11/16/22 Range/Units 11:02 11:53 11:59 WBC (3.8-10.6) k/uL RBC (3.80-5.40) m/uL Neutrophils # (1.3-7.7) k/uL Monocytes # (0-1.0) k/uL Sodium (137-145) mmol/L Potassium (3.5-5.1) mmol/L Chloride 112 H (98-107) mmol/L Carbon Dioxide 14 L (22-30) mmol/L Glucose (74-99) mg/dL POC Glucose (mg/dL) 290 H 270 H (70-110) mg/dL Calcium (8.4-10.2) mg/dL 11/16/22 11/16/22 11/16/22 Range/Units 12:59 13:57 14:59 WBC (3.8-10.6) k/uL RBC (3.80-5.40) m/uL Neutrophils # (1.3-7.7) k/uL Monocytes # (0-1.0) k/uL Sodium (137-145) mmol/L Potassium (3.5-5.1) mmol/L Chloride (98-107) mmol/L Carbon Dioxide (22-30) mmol/L Glucose (74-99) mg/dL POC Glucose (mg/dL) 249 H 227 H 155 H (70-110) mg/dL Calcium (8.4-10.2) mg/dL 11/16/22 11/16/22 11/16/22 Range/Units 16:01 16:59 17:32 WBC (3.8-10.6) k/uL RBC (3.80-5.40) m/uL Neutrophils # (1.3-7.7) k/uL Monocytes # (0-1.0) k/uL Sodium (137-145) mmol/L Potassium 3.3 L (3.5-5.1) mmol/L Chloride 111 H (98-107) mmol/L Carbon Dioxide 19 L (22-30) mmol/L Glucose (74-99) mg/dL POC Glucose (mg/dL) 65 L 63 L (70-110) mg/dL Calcium (8.4-10.2) mg/dL 11/16/22 11/16/22 11/16/22 Range/Units 17:55 20:27 21:06 WBC (3.8-10.6) k/uL RBC (3.80-5.40) m/uL Neutrophils # (1.3-7.7) k/uL Monocytes # (0-1.0) k/uL Sodium (137-145) mmol/L Potassium (3.5-5.1) mmol/L Chloride (98-107) mmol/L Carbon Dioxide (22-30) mmol/L Glucose (74-99) mg/dL POC Glucose (mg/dL) 67 L 190 H 185 H (70-110) mg/dL Calcium (8.4-10.2) mg/dL 11/16/22 11/16/22 11/17/22 Range/Units 22:08 23:03 00:15 WBC (3.8-10.6) k/uL RBC (3.80-5.40) m/uL Neutrophils # (1.3-7.7) k/uL Monocytes # (0-1.0) k/uL Sodium (137-145) mmol/L Potassium (3.5-5.1) mmol/L Chloride (98-107) mmol/L Carbon Dioxide (22-30) mmol/L Glucose (74-99) mg/dL POC Glucose (mg/dL) 207 H 152 H 131 H (70-110) mg/dL Calcium (8.4-10.2) mg/dL 11/17/22 11/17/22 11/17/22 Range/Units 01:02 02:05 02:56 WBC (3.8-10.6) k/uL RBC (3.80-5.40) m/uL Neutrophils # (1.3-7.7) k/uL Monocytes # (0-1.0) k/uL Sodium (137-145) mmol/L Potassium (3.5-5.1) mmol/L Chloride (98-107) mmol/L Carbon Dioxide (22-30) mmol/L Glucose (74-99) mg/dL POC Glucose (mg/dL) 130 H 171 H 186 H (70-110) mg/dL Calcium (8.4-10.2) mg/dL 11/17/22 11/17/22 11/17/22 Range/Units 04:05 05:03 05:25 WBC 26.8 H (3.8-10.6) k/uL RBC 3.61 L (3.80-5.40) m/uL Neutrophils # 22.9 H (1.3-7.7) k/uL Monocytes # 1.1 H (0-1.0) k/uL Sodium (137-145) mmol/L Potassium (3.5-5.1) mmol/L Chloride (98-107) mmol/L Carbon Dioxide (22-30) mmol/L Glucose (74-99) mg/dL POC Glucose (mg/dL) 208 H 210 H (70-110) mg/dL Calcium (8.4-10.2) mg/dL 11/17/22 11/17/22 11/17/22 Range/Units 05:25 06:13 07:05 WBC (3.8-10.6) k/uL RBC (3.80-5.40) m/uL Neutrophils # (1.3-7.7) k/uL Monocytes # (0-1.0) k/uL Sodium 135 L (137-145) mmol/L Potassium (3.5-5.1) mmol/L Chloride 109 H (98-107) mmol/L Carbon Dioxide 16 L (22-30) mmol/L Glucose 208 H (74-99) mg/dL POC Glucose (mg/dL) 211 H 225 H (70-110) mg/dL Calcium 7.9 L (8.4-10.2) mg/dL 11/17/22 11/17/22 11/17/22 Range/Units 07:59 09:08 10:13 WBC (3.8-10.6) k/uL RBC (3.80-5.40) m/uL Neutrophils # (1.3-7.7) k/uL Monocytes # (0-1.0) k/uL Sodium (137-145) mmol/L Potassium (3.5-5.1) mmol/L Chloride (98-107) mmol/L Carbon Dioxide (22-30) mmol/L Glucose (74-99) mg/dL POC Glucose (mg/dL) 246 H 252 H 263 H (70-110) mg/dL Calcium (8.4-10.2) mg/dL
[2022-11-17] MEDS ORDERED: SODIUM BICARB 8.4% 50 ML SYR (1 MEQ/ML) ONE (11:04)
[2022-11-17 11:06] LABS: Glucose,Whole Blood 251 mg/dL (70-110)
[2022-11-17 12:02] LABS: Glucose,Whole Blood 200 mg/dL (70-110)
[2022-11-17] MEDS ORDERED: INSULIN ASPART (NovoLOG) 100 UNIT/ML VIAL SQ SCH (12:30)
[2022-11-17 14:55] LABS: Glucose,Whole Blood 130 mg/dL (70-110)
[2022-11-17 16:02] LABS: Glucose,Whole Blood 95 mg/dL (70-110)
[2022-11-17] MEDS: CALCIUM CARBONATE 500 MG CHEWABLE PO PRN (19:12)
[2022-11-17] MEDS ORDERED: INSULIN PUMP BASAL RATES 1 EACH MISC MISCELLANE PRN (20:00)
[2022-11-17 20:08] LABS: Glucose,Whole Blood 240 mg/dL (70-110)
[2022-11-17] MEDS ORDERED: INSPUCOR MISCELLANE PRN (20:26)
[2022-11-17] MEDS: INSULIN LISPRO (For Pump) 100 UNIT/ML VIAL SQ-PUMP SCH (22:30)
[2022-11-17] MEDS: INSULIN PUMP MEAL BOLUS 1 UNIT MISC MISCELLANE SCH ×2 (22:31→23:51)
[2022-11-18] MEDS: HEPARIN SODIUM,PORCINE 5,000 UNIT/ML 1 ML VIAL SQ SCH ×2 (00:04→07:52)
[2022-11-18 00:09] LABS: Glucose,Whole Blood 156 mg/dL (70-110)
[2022-11-18] MEDS: CALCIUM CARBONATE 500 MG CHEWABLE PO PRN (03:18)
[2022-11-18 04:13] LABS: Glucose,Whole Blood 134 mg/dL (70-110)
[2022-11-18] MEDS: INSULIN PUMP MEAL BOLUS 1 UNIT MISC MISCELLANE SCH ×2 (06:34→08:00)
[2022-11-18] MEDS ORDERED: INSULIN DETEMIR (LEVEMIR) 100 UNIT/ML SYR SQ SCH (07:00)
[2022-11-18 07:58] LABS: Glucose,Whole Blood 99 mg/dL (70-110)
[2022-11-18] MEDS: ATORVASTATIN 10 MG TAB PO SCH (08:00)
[2022-11-18] MEDS: INSULIN LISPRO (For Pump) 100 UNIT/ML VIAL SQ-PUMP SCH (08:11)
[2022-11-18 08:29] VITALS: TEMP 97.4
--- NOTE | 2022-11-18 08:54 | P.PN ---
Subjective Progress Note Date: 11/18/22 I am seeing this patient in new consultation today 11/16/2022 in the intensive care unit for diabetic ketoacidosis. Patient is a 42-year-old female with past medical history significant for type 1 diabetes mellitus, hypertension, hyperlipidemia, and current every day smoker. Patient was floating down the river, and drinking alcohol on Tuesday. Her insulin pump broke or was lost. She has not had any insulin since Tuesday. She presented to the emergency room last night with complaints of nausea and vomiting and hyperglycemia. Blood glucose on arrival was 676, serum bicarb less than 5, anion gap unmeasurable, and she was ketone positive. VBG has a pH of 7, pCO2 of 18. Patient is fully awake and or iented, on room air, in no acute distress. Denies any infectious symptoms. She is refusing some aspects of care. Blood pressure is normotensive. Heart rhythm is sinus tachycardia. There are kussmaul respirations. Patient was started on the DKA protocol. Insulin is currently infusing per protocol. Normal saline is also infusing at 200 ML's per hour. She is also hyperkalemic with potassium of 7.4, and there are hyperacute T waves on bedside monitor. BMP has a sodium 140, potassium 7.4, chloride 100, serum bicarb less than 5, BUN 32, creatinine 1.49, glucose 676. There is a component of acute kidney injury, probably related to dehydration. CBC on arrival showed some leukocytosis with WBC count of 27, hemoglobin 14.6, hematocrit 46.5, platelets 308. Afebrile. Urinalysis not concerning for UTI. Patient will be monitored in the intensive care unit until her DKA resolved. 11/17/2022, I'm seeing the patient for a follow-up. She is fully alert and awake and she is hungry and she is requesting food. Overnight, she was On an insulin drip as the patient continued to have issues with some mild anion gap and non-anion gap metabolic acidosis. This morning, her serum bicarb is at 16 with a gap of 10 and a sodium level is at 135 with a potassium level of 4.6. The white cell count is 26 with a hemoglobin of 11.7. She did have some reactive leukocytosis which is improving. No nausea. No emesis. No other significant events overnight. This morning, she is on insulin at 1 unit an hour. She is also on D5 half-normal saline at the rate of 150 mL an hour. 11/18/2022, the patient is awake and alert and communicating. She is back on insulin pump and she declined to go on long-acting insulin.Pump is functional. Most recent blood sugar is 99 and she is tolerating her diet and she is awake and alert. She also declined having labs today. Note that her white cell count was improving. Her serum bicarb was 16 yet Anion gap was only at 10. For the most part, the patient is doing well. Her other medications include Cymbalta 60 mg by mouth daily and Lipitor. Objective - Vital Signs Vital signs: Vital Signs Temp 97.4 F L 11/18/22 08:00 Pulse 94 11/18/22 08:00 Resp 13 11/18/22 08:00 BP 124/80 11/18/22 08:00 Pulse Ox 99 11/18/22 08:00 FiO2 Intake & Output 11/17/22 11/18/22 11/18/22 18:59 06:59 18:59 Intake Total 2250.875 725 250 Output Total 0 600 300 Balance 2250.875 125 -50 Weight 61.5 kg Intake: IV 1150 225 10 D5-0.45% NaCl with KCl 1150 225 20Meq/l 1,000 ml @ 75 mls /hr IV .[id number] JAZMYN Rx#: [id number] Invasive Line 1 10 Intake, IV Titration 26.875 Amount Insulin Regular 100 unit 26.875 In Sodium Chloride 0.9% 100 ml @ 0.1 UNITS/KG/HR 5.956 mls/hr IV .[id number] JAZMYN Rx#:[id number] Oral 1074 500 240 Output: Urine 0 600 300 Other: Voiding Method Bedside Commode Toilet # Voids 1 1 - Exam The patient appeared well nourished and normally developed. Vital signs as do cumented. Head exam is unremarkable. No scleral icterus or corneal arcus noted. Neck is without jugular venous distension, thyromegaly, or carotid bruits. Carotid upstrokes are brisk bilaterally. Lungs are clear to auscultation and percussion. Cardiac exam reveals the PMI to be normally sized and situated. Rhythm is regular. First and second heart sounds normal. No murmurs, rubs or gallops. Abdominal exam reveals normal bowel sounds, no masses, no organomegaly and no aortic enlargement. Extremities are nonedematous and both femoral and pedal pulses are normal.Examination of the skin revealed no evidence of significant rashes, suspicious appearing nevi or other concerning lesions.Neurologically, the patient is awake and alert and the patient does not have any focal neurological deficit. Cranial nerves are essentially intact. - Labs CBC & Chem 7: 11/17/22 05:25 11/17/22 05:25 Labs: Abnormal Lab Results - Last 24 Hours (Table) 11/17/22 11/17/22 11/17/22 Range/Units 05:25 09:08 10:13 POC Glucose (mg/dL) 252 H 263 H (70-110) mg/dL Hemoglobin A1c 10.7 H (<=6.0) % 11/17/22 11/17/22 11/17/22 Range/Units 11:04 12:00 14:53 POC Glucose (mg/dL) 251 H 200 H 130 H (70-110) mg/dL Hemoglobin A1c (<=6.0) % 11/17/22 11/18/22 11/18/22 Range/Units 20:06 00:08 04:11 POC Glucose (mg/dL) 240 H 156 H 134 H (70-110) mg/dL Hemoglobin A1c (<=6.0) % Assessment and Plan Assessment: Acute diabetic ketoacidosis, , recovered and the patient is back on insulin pump, she is fully alert and awake and blood sugars under good control for now Severe anion gap metabolic acidosis, secondary to above, improved and the patient has a component of non-anion gap metabolic acidosis at this point in time, she was given bicarb yesterday and follow-up electrolytes were not done as the patient declined blood work Severe hyperkalemia, with ECG changes , recovered Dehydration, recovered Leukocytosis, doubt infectious etiology, reactive, improving Acute kidney injury, likely prerenal secondary to dehydration, recovered Hyperphosphatemia Essential hypertension Hyperlipidemia Chronic nicotine dependence Plan: Keep insulin pump Monitor blood sugar Off her diet Continue Cymbalta and Lipitor Home today
[2022-11-18] MEDS ORDERED: DULoxetine HCL 60 MG CAPSULE.DR PO SCH (09:00)
[2022-11-18 10:16] VITALS: BP 121/75; PULSE 88; RESP 16
--- NOTE | 2022-11-18 11:15 | P.DS ---
Providers Date of admission: 11/15/22 22:30 Expected date of discharge: 11/18/22 Attending physician: Rayray Desai MD Consults: 11/15/22 22:30 Consult Physician Routine Consulting Provider: Dale Mendoza Consult Reason/Comments: icu Do you want consulting provider notified?: Yes Primary care physician: Stated None Hospital Course: Assessment: Diabetic ketoacidosis Hypertension Hyperlipidemia Hospital course: 42-year-old female with insulin-dependent diabetes, hypertension, hyperlipidemia presented for evaluation of nausea, vomiting. In the emergency room, patient was afebrile, 113/55, heart rate 118, 100% on room air. CBC demonstrated leukocytosis at 34.3. Basic metabolic panel showed an anion gap of 19, CO2 of 9, BUNs 32, creatinine 1.21, glucose of 358. Potassium was initially 7.4, but improved to 4.3. Phosphorus was 2.2. Liver function tests are unremarkable. EKG demonstrated sinus tachycardia with peaked T waves. Case is discussed with emergency room provider incision was made with the patient's intensive care unit for DKA. Pt was treated with IVF and insulin gtt. Her gap closed, and patient reported improvement of nausea and vomiting. She was adamantly against using SQ insulin outside of her insulin pump - and had family member bring her insulin pump from home. This insulin pump was an older pump that was not the same as the broken one that led to her hospitalization. She reported that she will work on getting a new replacement pump. She was able to tolerate some toast and fruit on day of discharge. She will f/u with PCP. I spent 34 minutes coordinating this discharge on 11/18 Gen: awake, alert HEENT: normocephalic, atraumatic, good hearing acuity, moist mucous membranes Resp: good air exchange, breathing comfortably with no accessory muscle use CVS: good distal perfusion x 4, GI: soft, NTTP, ND : no SPT, no CVAT, machado catheter not present MSK: no pitting edema, no clubbing Neuro: non-focal, moving all extremities Psych: cooperative, euthymic mood Patient Condition at Discharge: Good Plan - Discharge Summary New Discharge Prescriptions: New Calcium Carbonate [Tums] 500 mg PO QID PRN tab PRN Reason: Heartburn Ondansetron Odt [Zofran Odt] 4 mg PO Q8HR PRN #30 tab PRN Reason: Nausea And Vomiting Continue INSULIN LISPRO (For Pump) [humaLOG (For Pump)] 0.01 units SQ-PUMP CONTINUOUS DULoxetine HCL [Cymbalta] 60 mg PO DAILY Atorvastatin [Lipitor] 10 mg PO DAILY Glucagon [Baqsimi] 1 spray NASAL ONCE PRN PRN Reason: LOW BLOOD SUGAR Discontinued Enalapril Maleate [Vasotec] 2.5 mg PO DAILY Discharge Medication List Atorvastatin [Lipitor] 10 mg PO DAILY 11/15/22 [History] DULoxetine HCL [Cymbalta] 60 mg PO DAILY 11/15/22 [History] Glucagon [Baqsimi] 1 spray NASAL ONCE PRN 11/15/22 [History] INSULIN LISPRO (For Pump) [humaLOG (For Pump)] 0.01 units SQ-PUMP CONTINUOUS 11/15/22 [History] Calcium Carbonate [Tums] 500 mg PO QID PRN tab 11/18/22 [Rx] Ondansetron Odt [Zofran Odt] 4 mg PO Q8HR PRN #30 tab 11/18/22 [Rx] Follow up Appointment(s)/Referral(s): None,Stated [Primary Care Provider] - 1-2 days Patient Instructions/Handouts: Diabetic Ketoacidosis (DC), Hypoglycemia in a Person with Diabetes (ED), Hyperkalemia (ED), Tachycardia (ED), What to Do if Your Blood Sugar is Low (ED) Discharge Disposition: HOME SELF-CARE
== END 2022-11-18 11:16 | disposition home or self-care (01) | DRG 813 ==
LOC: EC 20:17 → 2SICU 22:30
PROVIDERS: ADMIT Internal Medicine; ATTEND Internal Medicine
DX: T85.614A Breakdown (mechanical) of insulin pump, initial encounter (principal); E10.10 Type 1 diabetes mellitus with ketoacidosis without coma; N17.9 Acute kidney failure, unspecified; E10.40 Type 1 diabetes mellitus with diabetic neuropathy, unspecified; E10.319 Type 1 diabetes mellitus with unspecified diabetic retinopathy without macular edema; E83.39 Other disorders of phosphorus metabolism; I10 Essential (primary) hypertension; R25.1 Tremor, unspecified; E87.5 Hyperkalemia; F17.210 Nicotine dependence, cigarettes, uncomplicated; D72.828 Other elevated white blood cell count; E86.0 Dehydration; T38.3X6A Underdosing of insulin and oral hypoglycemic [antidiabetic] drugs, initial encounter; E78.5 Hyperlipidemia, unspecified; Z79.4 Long term (current) use of insulin; Z88.5 Allergy status to narcotic agent; Z88.2 Allergy status to sulfonamides; Z88.1 Allergy status to other antibiotic agents; Z79.899 Other long term (current) drug therapy
CPT/HCPCS: 36415; 80048; 80051; 80053; 81001; 82009; 82565; 82803; 82947; 83036; 83735; 84100; 84484; 84520; 85025; 93005; 94644; 96361; 96374; 99291